=== PATIENT | female | born 1970 | race Caucasian/White ===

== ENCOUNTER → 2017-02-28 | Outpatient (CLI) | payer BC ==
[~2017-02-28] VITALS: Ht 160 cm; Wt 63.5 kg
[~2017-02-28] MED LIST: Hydrocodone PO; IBUP400T PO; LIDOCAINE 2% INJ 100 MG/5 ML SDV (FOR ANES.) As Ordered ONE; LR 500 ML IV SCH; PRIL20CA PO; PROPOFOL 200 MG/20 ML VIAL As Ordered ONE; Pentasa PO; TRAM50TA2 PO; VICO5TAB OR; [UNRECOGNIZED DRUG - OTHER] PO; diazePAM 10 MG TAB PO ONE; diazePAM 5 MG TAB As Ordered ONE
--- NOTE | 2017-02-28 08:16 | ROOR ---
Patient Name: Cameron Garrido Procedure Date: 02/28/2017 8:03 AM Date of : 1970 Age: 46 Room: [facility] Gender: Female Note Status: Finalized Procedure: Upper GI endoscopy Indications: Dysphagia, Suspected esophageal reflux Providers: Deep Schneider Jr, MD Referring MD: Latonia Vieira DO Requesting Provider: Medicines: Propofol per Anesthesia Complications: No immediate complications. Procedure: Pre-Anesthesia Assessment: - Prior to the procedure, a History and Physical was performed, and patient medications and allergies were reviewed. The patient is competent. The risks and benefits of the procedure and the sedation options and risks were discussed with the patient. All questions were answered and informed consent was obtained. Patient identification and proposed procedure were verified by the physician and the nurse in the pre-procedure area and in the procedure room. Mental Status Examination: alert and oriented. Airway Examination: normal oropharyngeal airway and neck mobility. Respiratory Examination: clear to auscultation. CV Examination: normal. ASA Grade Assessment: II - A patient with mild systemic disease. After reviewing the risks and benefits, the patient was deemed in satisfactory condition to undergo the procedure. The anesthesia plan was to use moderate sedation / analgesia (conscious sedation). Immediately prior to administration of medications, the patient was re-assessed for adequacy to receive sedatives. The heart rate, respiratory rate, oxygen saturations, blood pressure, adequacy of pulmonary ventilation, and response to care were monitored throughout the procedure. The physical status of the patient was re-assessed after the procedure. The Endoscope was introduced through the mouth, and advanced to the second part of duodenum. The upper GI endoscopy was accomplished without difficulty. The patient tolerated the procedure well. Findings: The upper third of the esophagus, middle third of the esophagus and lower third of the esophagus were normal. The cardia, gastric fundus, gastric body, prepyloric region of the stomach and pylorus were normal. Diffuse mildly erythematous mucosa without bleeding was found in the gastric antrum. Biopsies were taken with a cold forceps for histology. The duodenal bulb, first portion of the duodenum and second portion of the duodenum were normal. Biopsies for histology were taken with a cold forceps for evaluation of celiac disease. Impression: - Normal upper third of esophagus, middle third of esophagus and lower third of esophagus. - Normal cardia, gastric fundus, gastric body, prepyloric region of the stomach and pylorus. - Erythematous mucosa in the antrum. Biopsied. - Normal duodenal bulb, first portion of the duodenum and second portion of the duodenum. Biopsied. Recommendation: - Discharge patient to home (ambulatory). - Return to my office in 2 weeks. Deep Schneider MD Deep Schneider Jr, MD 02/28/2017 8:16:01 AM This report has been signed electronically. Number of Addenda: 0 Note Initiated On: 02/28/2017 8:03 AM Estimated Blood Loss: Estimated blood loss: none.
[2017-02-28 08:40] VITALS: BP 128/82
== END | disposition home or self-care (01) ==
LOC: M OPP 06:45
PROVIDERS: ATTEND Surgery
DX: R13.10 Dysphagia, unspecified (principal); K31.89 Other diseases of stomach and duodenum; K21.9 Gastro-esophageal reflux disease without esophagitis; K50.90 Crohn's disease, unspecified, without complications; R00.8 Other abnormalities of heart beat; K85.90 Acute pancreatitis without necrosis or infection, unspecified; D64.9 Anemia, unspecified; H66.90 Otitis media, unspecified, unspecified ear; M54.9 Dorsalgia, unspecified; M25.60 Stiffness of unspecified joint, not elsewhere classified; M26.609 Unspecified temporomandibular joint disorder, unspecified side; F41.9 Anxiety disorder, unspecified; F32.9 Major depressive disorder, single episode, unspecified; N60.19 Diffuse cystic mastopathy of unspecified breast; Z91.041 Radiographic dye allergy status; Z88.8 Allergy status to other drugs, medicaments and biological substances; Z79.899 Other long term (current) drug therapy; Z80.8 Family history of malignant neoplasm of other organs or systems

== ENCOUNTER → 2017-07-01 | Outpatient (CLI) | payer BC ==
[~2017-07-01] MED LIST changes: -LIDOCAINE 2% INJ 100 MG/5 ML SDV (FOR ANES.) As Ordered ONE; -LR 500 ML IV SCH; -PROPOFOL 200 MG/20 ML VIAL As Ordered ONE; -diazePAM 10 MG TAB PO ONE; -diazePAM 5 MG TAB As Ordered ONE
--- NOTE | 2017-07-01 19:53 | REP ---
Chest x-ray: Two views. History: Shortness of breath . Comparison study: No comparison . Findings: The lungs are well inflated and free of infiltrate. The pleural angles are sharp. The heart size is normal. Pulmonary vasculature is not increased. No significant bony abnormality is seen. Impression: Negative chest x-ray. Signed by Kael Ambriz MD 07/01/2017 07:44 P
== END ==
LOC: M LRY 19:24
PROVIDERS: ATTEND Nurse Practitioner Family
DX: R06.02 Shortness of breath (principal)

== ENCOUNTER → 2017-07-25 | Outpatient (CLI) | payer BC ==
--- NOTE | 2017-07-25 17:19 | REP ---
Clinical: Cough . Comparison: 07/01/2017 . Technique: PA and lateral. Findings: The mediastinum and cardiac silhouette are normal. The lung wise are clear and without acute consolidation, effusion, or pneumothorax. The skeletal structures are intact and normal. Impression: 1. No acute cardiopulmonary process. Signed by Melvin Ricketts MD 07/25/2017 05:11 P
== END ==
LOC: M RAD 13:55
PROVIDERS: ATTEND Family Medicine
DX: R05 Cough (principal)

== ENCOUNTER → 2017-08-07 | Outpatient (CLI) | payer BC ==
--- NOTE | 2017-08-08 09:08 | ECHO ---
DATE OF PROCEDURE: 08/07/2017 DATE OF : 1970 AGE: 46 GENDER: Female HEIGHT: 63 inches WEIGHT: 140 pounds BODY SURFACE AREA: 1.66 meters squared OUTPATIENT REFERRING PHYSICIAN: Dr. Latonia Vieira INDICATION: Dyspnea MEASUREMENTS: 2-D Measurements: RV: 2.4 cm LV: 3.7 cm Septum: 0.8 cm Posterior wall: 0.8 cm Aortic root: 2.6 cm LA: 2.9 cm LVEF: 70% Doppler Measurements: AV: 1.1 m/s LVOT: 0.71 m/s LVOT diameter: 1.7 cm MV - E 50 A 49 EA ratio 1 Early mitral deceleration time: 218 ms E prime: 5.7 A prime: 9 E/E prime ratio: 9 PV: 0.7 m/s Pulmonary artery acceleration time: 141 ms PASP: 16 mmHg IVC: 1.25 cm COMMENTS: Normal sinus rhythm without intraventricular conduction disturbance. Normal cardiac chamber sizes and wall thickness. On real-time imaging from the parasternal and projections wall motion was symmetrical and hyperkinetic. Normal-appearing mitral valvular apparatus and excursion with no posterior systolic buckling. Three equal size aortic cusps of normal thickness and cusp separation. Normal aortic root size. No apparent intracardiac mass or pericardial effusion. Color flow Doppler study taken from the parasternal and apical projection showed trace tricuspid, but no mitral or aortic insufficiency. Guided continuous wave Doppler of her aortic valve showed a normal peak systolic velocity against LV outflow tract obstruction. Pulsed and continuous wave Doppler of her LV inflow tract taken from the apical four-chamber projection showed normal diastolic filling velocities against mitral stenosis. The filling pattern was also normal against a significant left ventricular diastolic dysfunction. Estimated mean left atrial pressure was within normal limits. Pulsed and continuous wave Doppler of her pulmonary trunk showed a normal peak systolic velocity against RV outflow tract obstruction. Her pulmonary artery acceleration time was normal against an elevated pulmonary vascular resistance or pulmonary hypertension. We attempted to further estimate her right ventricular systolic pressure using guided continuous wave Doppler of her tricuspid valve, but could not get a clear spectral envelope of her tricuspid regurgitation. Her inferior vena cava was of normal size with normal respiratory collapse against an elevated central venous pressure. CONCLUSION: Normal-appearing echocardiogram/Doppler study.
== END ==
LOC: M CARPUL 08:10
PROVIDERS: ATTEND Family Medicine
DX: R06.00 Dyspnea, unspecified (principal); J06.9 Acute upper respiratory infection, unspecified

== ENCOUNTER 2018-02-21 06:44 | Day surgery (SDC) | payer BC ==
[2018-02-21] MEDS ORDERED: NS 1,000 ML IV (07:00)
[2018-02-21] MEDS ORDERED: diazePAM 5 MG TAB As Ordered (07:18)
[2018-02-21] MEDS ORDERED: PROPOFOL 200 MG/20 ML VIAL As Ordered ×2 (08:11)
[2018-02-21] MEDS ORDERED: LIDOCAINE 2% INJ 100 MG/5 ML SDV (FOR ANES.) As Ordered (08:11)
== END 2018-02-21 08:42 | disposition home or self-care (01) ==
LOC: M OPP 06:44
DX: K50.80 Crohn's disease of both small and large intestine without complications (principal); K64.8 Other hemorrhoids; F33.2 Major depressive disorder, recurrent severe without psychotic features; F41.9 Anxiety disorder, unspecified; R39.15 Urgency of urination; Z79.891 Long term (current) use of opiate analgesic; Z79.899 Other long term (current) drug therapy; Z88.5 Allergy status to narcotic agent; Z91.041 Radiographic dye allergy status; Z90.710 Acquired absence of both cervix and uterus; Z87.19 Personal history of other diseases of the digestive system
CPT/HCPCS: 45380

== ENCOUNTER → 2018-03-12 | Outpatient (REF) | payer BC ==
[2018-03-13 19:06] LABS: APPEARANCE, URINE CLEAR (CLEAR); BACTERIA, URINE AUTO 1+ (NEGATIVE); BILIRUBIN, URINE AUTO NEGATIVE (NEGATIVE); BLOOD, URINE BLOOD NEGATIVE (NEGATIVE); COLOR, URINE YELLOW (YELLOW); GLUCOSE, URINE (UA) AUTO NEGATIVE (NEGATIVE); KETONE, URINE AUTO NEGATIVE (NEGATIVE); LEUKOCYTE ESTERASE, URINE AUTO NEGATIVE (NEGATIVE); MUCUS, URINE SMALL (NEGATIVE); NITRITE, URINE AUTO NEGATIVE (NEGATIVE); PROTEIN, URINE AUTO NEGATIVE (NEGATIVE); RBC, URINE AUTO 2 /HPF (0-3); SPECIFIC GRAVITY URINE AUTO 1.013 (1.002-1.035); SQUAMOUS EPITHELIAL CELL UR AU 2 /HPF (0-6); UROBILINOGEN, URINE AUTO 0.2 mg/dL (0.0-2.0); WBC, URINE AUTO 1 /HPF (0-3)
== END ==
LOC: M SFHCLUC 18:24
DX: M54.5 Low back pain (principal)
CPT/HCPCS: 81001

== ENCOUNTER → 2018-10-02 | Outpatient (CLI) | payer BC ==
[~2018-10-02] MED LIST changes: +BIOT1CAP2 PO; +CLAR1TAB2 PO; +LIDO5DIS41 TD; +PENT500C PO; +VITA100067 PO; +VITA500T3 PO
--- NOTE | 2018-10-02 15:49 | REP ---
Chest two views HISTORY: Abdominal discomfort Comparison: 07/25/2017 The lungs are clear. The heart is normal in size. The pulmonary vasculature is normal in appearance. The bony structure is intact. IMPRESSION: No acute disease. Electronically Signed by Isai Mcginnis MD 10/02/2018 03:41 P
== END ==
LOC: M LRY 15:21
PROVIDERS: ATTEND Nurse Practitioner Family
DX: R10.13 Epigastric pain (principal)

== ENCOUNTER → 2018-10-02 | Outpatient (REF) | payer BC | LOC: M SFHCLERA 13:58 | PROVIDERS: ATTEND Nurse Practitioner Family | DX: J02.9 Acute pharyngitis, unspecified (principal) ==

== ENCOUNTER → 2018-10-20 | Outpatient (CLI) | payer BC ==
[~2018-10-20] MED LIST changes: +E-Z-PAQUE 96% w/w SUSP 176GM BTL As Ordered ONE
--- NOTE | 2018-10-20 19:27 | REP ---
Small bowel follow-through The procedure was performed under the direct supervision of Dr. Ambriz. The images were reviewed with Dr. Ambriz. The fur dressing supervisor film shows no organomegaly or pathological masses. The intestinal gas pattern is nonspecific. Liquid barium was administered and the barium column was followed through the small bowel to the level of the terminal ileum. Small bowel transit time is approximately 15 minutes . During fluoroscopy gentle palpation shows all loops are freely movable and pliable. There are no fixed or angulated loops. The small bowel mucosal pattern is normal in course and caliber. There is no transition to suggest a partial small bowel obstruction. Spot filming of the terminal ileum shows it to be unremarkable. There is separation of loops in the distal portion of the small bowel. This is consistent with fatty hypertrophy as seen on a previous CT scan dated 05/13/2016. Impression: Small bowel follow-through examination within normal limits. There is separation of loops in the distal portion of the small bowel. This is consistent with fatty hypertrophy as seen on a previous CT scan dated 05/13/2016. 1.1 minutes of fluoro time was utilized for this procedure. Reviewed by DAKOTA Luna 10/20/2018 04:22 P Electronically Signed by Kael Ambriz MD 10/20/2018 07:17 P
== END ==
LOC: M RAD 08:10
PROVIDERS: ATTEND Internal Medicine Gastroenterology
DX: K50.80 Crohn's disease of both small and large intestine without complications (principal)

== ENCOUNTER → 2019-11-05 | Outpatient (REF) | payer BC ==
[~2019-11-05] MED LIST changes: +CYAN500T8 PO; -E-Z-PAQUE 96% w/w SUSP 176GM BTL As Ordered ONE; -VITA500T3 PO
[2019-11-05 18:08] LABS: BASO % 0.4 % (0.0-1.0); EOS # 0.3 10^3/uL (0.0-0.5); EOS % 2.5 % (0.0-3.0); HEMATOCRIT 42.4 % (36.0-47.0); HEMOGLOBIN 14.1 g/dl (12.0-15.5); LYMPH # 4.3 10^3/uL (1.5-5.0); LYMPH % 38.9 % (24.0-44.0); MEAN CORPUSCULAR HEMOGLOBIN 30.3 pg (27.0-33.0); MEAN CORPUSCULAR HGB CONC 33.3 g/dl (32.0-36.5); MEAN CORPUSCULAR VOLUME 91.2 fl (80.0-96.0); MONO # 0.8 10^3/uL (0.0-0.8); MONO % 7.1 % (0.0-5.0); NEUTROPHILS # 5.6 10^3/uL (1.5-8.5); NEUTROPHILS % 50.5 % (36.0-66.0); PLATELET COUNT, AUTOMATED 364 10^3/uL (150-450); RED BLOOD COUNT 4.65 10^6/uL (4.00-5.40); WHITE BLOOD COUNT 11.2 10^3/uL (4.0-10.0)
[2019-11-05 18:09] LABS: C REACTIVE PROTEIN QUANTITATIV < 0.30 MG/DL (0.00-0.30); RHEUMATOID FACTOR QUANT < 10.0 IU/ML (<15.0); URIC ACID 3.5 MG/DL (2.6-6.0)
[2019-11-05 19:08] LABS: ERYTHROCYTE SEDIMENTATION RATE 10 mm/hr (0-20)
== END ==
LOC: M LABDRAW1 16:49
PROVIDERS: ATTEND Physician Assistant Surgical
DX: M17.12 Unilateral primary osteoarthritis, left knee (principal)

== ENCOUNTER → 2022-07-18 | Outpatient (CLI) | payer BC ==
[~2022-07-18] MED LIST changes: +CYAN500T14 PO; -CYAN500T8 PO
== END ==
LOC: M LABSMTC 09:37
PROVIDERS: ATTEND Anesthesiology
DX: Z01.812 Encounter for preprocedural laboratory examination (principal); Z11.52 Encounter for screening for COVID-19

== ENCOUNTER → 2022-08-15 | Outpatient (CLI) | payer BC ==
[~2022-08-15] MED LIST changes: +MESA500C; +OMEP40CA4 PO; +PANT40TA29; +VITA100093 PO
== END ==
LOC: M LABSMTC 11:32
PROVIDERS: ATTEND Anesthesiology
DX: Z01.812 Encounter for preprocedural laboratory examination (principal); Z11.52 Encounter for screening for COVID-19

== ENCOUNTER 2022-08-20 08:24 | Day surgery (SDC) | payer BC ==
[~2022-08-20] VITALS: Ht 160 cm; Wt 60.3 kg
[~2022-08-20 08:24] MED LIST changes: +NS 1,000 ML IV ONE
[2022-08-20] MEDS ORDERED: diazePAM 5MG TABLET PO ONE (09:15)
[2022-08-20] MEDS ORDERED: LIDOCAINE 2% 100MG/5ML SDV (FOR ANES.) As Ordered ONE (10:02)
[2022-08-20] MEDS ORDERED: propofoL 200 MG/20 ML VIAL As Ordered ONE (10:02)
[2022-08-20 10:41] VITALS: BP 144/92
== END 2022-08-20 10:57 | disposition home or self-care (01) ==
LOC: M OPP 08:24
PROVIDERS: ATTEND Internal Medicine Gastroenterology
DX: D12.7 Benign neoplasm of rectosigmoid junction (principal); K64.4 Residual hemorrhoidal skin tags; K64.8 Other hemorrhoids; K50.80 Crohn's disease of both small and large intestine without complications; Z79.1 Long term (current) use of non-steroidal anti-inflammatories (NSAID); Z79.891 Long term (current) use of opiate analgesic; Z88.5 Allergy status to narcotic agent; Z91.041 Radiographic dye allergy status; F32.9 Major depressive disorder, single episode, unspecified; F41.9 Anxiety disorder, unspecified; Z87.442 Personal history of urinary calculi; Z86.2 Personal history of diseases of the blood and blood-forming organs and certain disorders involving the immune mechanism; Z87.19 Personal history of other diseases of the digestive system; Z86.16 Personal history of COVID-19

== ENCOUNTER → 2023-01-24 | Outpatient (CLI) | payer BC ==
[~2023-01-24] MED LIST changes: -NS 1,000 ML IV ONE
== END ==
LOC: M RAD 15:11
PROVIDERS: ATTEND Otolaryngology
DX: R59.0 Localized enlarged lymph nodes (principal)

== ENCOUNTER → 2023-06-20 | Outpatient (CLI) | payer BC | LOC: M RAD 15:34 | PROVIDERS: ATTEND Otolaryngology | DX: R22.1 Localized swelling, mass and lump, neck (principal) ==

== ENCOUNTER → 2023-07-31 | Outpatient (CLI) | payer BC | LOC: M PLAIMG 13:48 | PROVIDERS: ATTEND Orthopaedic Surgery | DX: M54.12 Radiculopathy, cervical region (principal) ==

== ENCOUNTER → 2023-12-20 | Outpatient (CLI) | payer BC | LOC: M RAD 14:18 | PROVIDERS: ATTEND Otolaryngology | DX: R22.1 Localized swelling, mass and lump, neck (principal) ==

== ENCOUNTER → 2025-02-05 | Outpatient (CLI) | payer BC | LOC: M PLARAD 08:25 | PROVIDERS: ATTEND Orthopaedic Surgery | DX: M54.12 Radiculopathy, cervical region (principal) ==